=== PATIENT | male | born 1975 | race Caucasian/White ===

== ENCOUNTER 2019-10-15 12:29 | Emergency (ER) | payer SELFPAY ==
--- NOTE | 2019-10-15 13:13 | RAD REPORT ---
EXAM DESCRIPTION: RAD - Hand Right 3 View - 10/15/2019 1:06 pm CLINICAL HISTORY: PAIN COMPARISON: No comparisons FINDINGS: Soft tissue swelling is seen along the dorsum of the hand. No acute fracture or dislocatio n.
--- NOTE | 2019-10-15 13:49 | EDPHYS ---
Physician Documentation [facility] Name: Gurpreet Washington Age: 43 yrs Sex: Male : 1975 Arrival Date: 10/15/2019 Time: 12:32 Bed 11 Private MD: ED Physician Ivan Rojo HPI: 10/14 13:16 This 43 yrs old Male presents to ER via Ambulatory with complaints of Hand ma2 Injury. 13:16 The patient or guardian reports a contusion. The complaints affect the left hand ma2 diffusely. Onset: The symptoms/episode began/occurred suddenly, 1 day(s) ago. Associated signs and symptoms: Pertinent negatives: decreased sensation distally, fever, numbness distally, tingling distally. Severity of symptoms: At their worst the symptoms were moderate, in the emergency department the symptoms are unchanged. The patient has experienced similar episodes in the past. Historical: - Allergies: 12:41 No Known Allergies; jl7 - Home Meds: 12:41 None [Active]; jl7 - PMHx: 12:41 None; jl7 - PSHx: 12:41 Appendectomy; jl7 - Immunization history:: Adult Immunizations not up to date. - Social history:: Smoking status: Patient reports the use of cigarette tobacco products, smokes one-half pack cigarettes per day, Patient/guardian denies using alcohol, street drugs, The patient lives with family. - Family history:: not pertinent. ROS: 13:16 Constitutional: Negative for fever, chills, and weight loss. ma2 13:16 All other systems are negative. Exam: 13:16 Constitutional: This is a well developed, well nourished patient who is awake, alert, ma2 and in no acute distress. Neck: Trachea midline, no thyromegaly or masses palpated, and no cervical lymphadenopathy. Supple, full range of motion without nuchal rigidity, or vertebral point tenderness. No Meningismus. Chest/axilla: Normal chest wall appearance and motion. Nontender with no deformity. No lesions are appreciated. Cardiovascular: Regular rate and rhythm with a normal S1 and S2. No gallops, murmurs, or rubs. Normal PMI, no JVD. No pulse deficits. Respiratory: Lungs have equal breath sounds bilaterally, clear to auscultation and percussion. No rales, rhonchi or wheezes noted. No increased work of breathing, no retractions or nasal flaring. Abdomen/GI: Soft, non-tender, with normal bowel sounds. No distension or tympany. No guarding or rebound. No evidence of tenderness throughout. MS/ Extremity: right hand ttp and swelling on medial aspect of dorsal hand, sensation intact, no warmth or redness or other sign of infection, skin over is intact including skin creeses, no skin cuts, Pulses equal, no cyanosis. Neurovascular intact. Full, normal range of motion. Neuro: Awake and alert, GCS 15, oriented to person, place, time, and situation. Cranial nerves II-XII grossly intact. Motor strength 5/5 in all extremities. Sensory grossly intact. Cerebellar exam normal. Normal gait. Vital Signs: 12:39 BP 130 / 91; Pulse 98; Resp 16; Temp 98.9; Pulse Ox 98% ; Weight 72.57 kg; Height 5 ft. jl7 7 in. (170.18 cm); Pain 2/10; 12:39 Body Mass Index 25.06 (72.57 kg, 170.18 cm) 7 MDM: 12:43 Patient medically screened. ma2 13:16 Differential diagnosis: dislocation, closed fracture, contusion, abrasion, tendonitis. ma2 Data reviewed: vital signs, nurses notes. 13:34 Counseling: I had a detailed discussion with the patient and/or guardian regarding: the ma2 historical points, exam findings, and any diagnostic results supporting the discharge/admit diagnosis, the presence of at least one elevated blood pressure reading (>120/80) during this emergency department visit, the need for outpatient follow up. 10/14 12:50 Order name: Hand Right 3 View XRAY; Complete Time: 13:34 ma2 Administered Medications: No medications were administered Disposition: 10/15/19 13:47 Discharged to Home. Impression: Abrasion of right hand. - Condition is Stable. - Discharge Instructions: Hand Contusion, [id number], Form - Return To Work. - Work release form, Medication Reconciliation Form, Thank You Letter, Antibiotic Education, Prescription Opioid Use form. - Follow up: Private Physician; When: Tomorrow; Reason: Continuance of care. Signatures: Dispatcher [employer] Meenakshi Downs RN RN jl7 Ivan Rojo MD MD ma2 Corrections: (The following items were deleted from the chart) 14:09 13:47 10/15/2019 13:47 Discharged to Home. Impression: Abrasion of right hand. jl7 Condition is Stable. Forms are Medication Reconciliation Form, Thank You Letter, Antibiotic Education, Prescription Opioid Use. Follow up: Private Physician; When: Tomorrow; Reason: Continuance of care. ma2
--- NOTE | 2019-10-15 13:49 | ER ---
Nurse's Notes [facility] Name: Gurpreet Washington Age: 43 yrs Sex: Male : 1975 Arrival Date: 10/15/2019 Time: 12:32 Bed 11 Private MD: Diagnosis: Abrasion of right hand Presentation: 10/14 12:39 Chief complaint: Patient states: Hit a wall last night, swelling noted to right hand. jl7 Coronavirus screen: Patient denies fever greater than 100.4F, cough, shortness of breath, or difficulty breathing. Proceed with normal triage process. Ebola Screen: No symptoms or risks identified at this time. Initial Sepsis Screen: Does the patient meet any 2 criteria? No. Patient's initial sepsis screen is negative. Does the patient have a suspected source of infection? No. Patient's initial sepsis screen is negative. Risk Assessment: Do you want to hurt yourself or someone else? Patient reports no desire to harm self or others. Onset of symptoms was October 14, 2019. 12:39 Method Of Arrival: Ambulatory jl7 12:39 Acuity: DANG 4 jl7 Triage Assessment: 12:41 General: Appears in no apparent distress. uncomfortable, Behavior is calm, cooperative, jl7 appropriate for age. Pain: Complains of pain in dorsum of right hand Pain currently is 2 out of 10 on a pain scale. Musculoskeletal: Swelling present in dorsum of right hand. Injury Description: swelling. Historical: - Allergies: 12:41 No Known Allergies; jl7 - Home Meds: 12:41 None [Active]; jl7 - PMHx: 12:41 None; jl7 - PSHx: 12:41 Appendectomy; jl7 - Immunization history:: Adult Immunizations not up to date. - Social history:: Smoking status: Patient reports the use of cigarette tobacco products, smokes one-half pack cigarettes per day, Patient/guardian denies using alcohol, street drugs, The patient lives with family. - Family history:: not pertinent. Screenin:50 Abuse screen: Denies threats or abuse. Denies injuries from another. Nutritional jl7 screening: No deficits noted. Tuberculosis screening: No symptoms or risk factors identified. Fall Risk None identified. Assessment: 12:50 General: See triage assessment. jl7 Vital Signs: 12:39 BP 130 / 91; Pulse 98; Resp 16; Temp 98.9; Pulse Ox 98% ; Weight 72.57 kg; Height 5 ft. jl7 7 in. (170.18 cm); Pain 2/10; 12:39 Body Mass Index 25.06 (72.57 kg, 170.18 cm) jl7 ED Course: 12:32 Patient arrived in ED. ag5 12:40 Triage completed. jl7 12:41 Arm band placed on right wrist. jl7 12:43 Ivan Rojo MD is Attending Physician. ma2 12:50 Patient has correct armband on for positive identification. Bed in low position. Call jl7 light in reach. Side rails up X 1. 13:09 Hand Right 3 View XRAY In Process Unspecified. EDNH 14:06 Meenakshi Russell RN is Primary Nurse. jl7 14:09 No provider procedures requiring assistance completed. Patient did not have IV access [facility] during this emergency room visit. Administered Medications: No medications were administered Outcome: 13:47 Discharge ordered by . [facility] 14:09 Discharged to home ambulatory. jl7 14:09 Condition: stable 14:09 Discharge instructions given to patient, Instructed on discharge instructions, follow up and referral plans. Demonstrated understanding of instructions, follow-up care. 14:10 Patient left the ED. 7 Signatures: Dispatcher [employer] Meenakshi Downs RN RN jl7 Alzahri, Mohammad, MD MD ct2 Josemanuel Eagle ag5
[2019-10-15 14:20] VITALS: BP 130/91; TEMP 98.9; O2SAT 98
== END 2019-10-15 14:10 | disposition home or self-care (01) ==
LOC: ER 12:29
DX: S60.511A Abrasion of right hand, initial encounter (principal); W22.8XXA Striking against or struck by other objects, initial encounter; Y93.9 Activity, unspecified; Y92.9 Unspecified place or not applicable; F17.210 Nicotine dependence, cigarettes, uncomplicated
CPT/HCPCS: 99283

== ENCOUNTER 2020-10-27 14:45 | Emergency (ER) | payer SELFPAY ==
--- NOTE | 2020-10-27 16:32 | RAD REPORT ---
EXAM DESCRIPTION: RAD - Chest Pa And Lat (2 Views) - 10/27/2020 4:24 pm CLINICAL HISTORY: RIB PAIN - LEFT COMPARISON: None TECHNIQUE: Frontal and lateral views of the chest were obtained. FINDINGS: The lungs are clear. Small granuloma lateral mid left lung field. Heart size is normal an d central vasculature is within normal limits. No pleural effusion or pneumothorax seen. No gross r ib deformity. No aortic abnormality. IMPRESSION: No acute cardiopulmonary process.
--- NOTE | 2020-10-27 16:55 | ER ---
Nurse's Notes [facility] Name: Gurpreet Washington Age: 45 yrs Sex: Male : 1975 Arrival Date: 10/27/2020 Time: 14:50 Bed 23 Private MD: Diagnosis: Rib Contusion Presentation: 10/27 15:25 Chief complaint: Patient states: Fell off the [employer] board last night, landed on L ca1 side, c/o of L back pain, "I feel like I broke my ribs". Coronavirus screen: Client denies travel out of the [place] in the last 14 days. At this time, the client does not indicate any symptoms associated with coronavirus-19. Ebola Screen: Patient negative for fever greater than or equal to 101.5 degrees Fahrenheit, and additional compatible Ebola Virus Disease symptoms Patient denies exposure to infectious person. Patient denies travel to an Ebola-affected area in the 21 days before illness onset. No symptoms or risks identified at this time. Initial Sepsis Screen: Does the patient meet any 2 criteria? No. Patient's initial sepsis screen is negative. Does the patient have a suspected source of infection? No. Patient's initial sepsis screen is negative. Risk Assessment: Do you want to hurt yourself or someone else? Patient reports no desire to harm self or others. Onset of symptoms was October 27, 2020. 15:25 Method Of Arrival: Ambulatory ca1 15:25 Acuity: DANG 4 ca1 Triage Assessment: 17:05 General: Appears in no apparent distress. Behavior is calm, cooperative. iw Historical: - Allergies: 15:27 No Known Allergies; ca1 - Home Meds: 15:27 None [Active]; ca1 - PMHx: 15:27 None; ca1 - PSHx: 15:27 Appendectomy; back surgery; ca1 - Immunization history:: Flu vaccine is not up to date. - Social history:: Smoking status: Patient reports the use of cigarette tobacco products, smokes one-half pack cigarettes per day. Screenin:00 Abuse screen: Denies threats or abuse. Denies injuries from another. Nutritional iw screening: No deficits noted. Tuberculosis screening: No symptoms or risk factors identified. Fall Risk None identified. Assessment: 16:30 General: Appears in no apparent distress. Behavior is calm, cooperative. Pain: iw Complains of pain in left lateral posterior chest and left lateral anterior chest. Neuro: Level of Consciousness is awake, alert, obeys commands, Oriented to person, place, time, situation, Moves all extremities. Full function. Cardiovascular: Patient's skin is warm and dry. Respiratory: Respiratory effort is even, unlabored, Respiratory pattern is regular, symmetrical. Derm: Skin is intact, is healthy with good turgor. Musculoskeletal: Range of motion: intact in all extremities. Vital Signs: 15:25 BP 130 / 85; Pulse 88; Resp 16 S; Temp 97.3; Pulse Ox 99% on R/A; Weight 72.57 kg (R); ca1 Height 5 ft. 7 in. (170.18 cm) (R); Pain 8/10; 15:25 Body Mass Index 25.06 (72.57 kg, 170.18 cm) ca1 ED Course: 14:50 Patient arrived in ED. am2 15:26 Triage completed. ca1 15:27 Arm band placed on right wrist. ca1 15:54 Maria G Richmond, RN is Primary Nurse. iw 15:56 Jose C Kang PA is PHCP. m 15:56 Siddhartha Courtney MD is Attending Physician. jmm 16:22 Chest Pa And Lat (2 Views) XRAY In Process Unspecified. EDMS 16:30 Patient has correct armband on for positive identification. iw 17:05 No provider procedures requiring assistance completed. Patient did not have IV access iw during this emergency room visit. Administered Medications: No medications were administered Outcome: 16:54 Discharge ordered by MD. jmm 17:05 Discharged to home ambulatory. iw 17:05 Condition: good 17:05 Discharge instructions given to patient, Instructed on discharge instructions, follow up and referral plans. medication usage, Demonstrated understanding of instructions, follow-up care, medications, Prescriptions given X 1. 17:06 Patient left the ED. [facility] Signatures: Dispatcher [employer] EDMS Jose C Kang PA PA jmm Williams, Irene, RN RN iw Moreno, Amanda am2 Radha Woods RN RN ca1
--- NOTE | 2020-10-27 16:56 | EDPHYS ---
Physician Documentation [facility] Name: Gurpreet Washington Age: 45 yrs Sex: Male : 1975 Arrival Date: 10/27/2020 Time: 14:50 Bed 23 Private MD: ED Physician Siddhartha Courtney HPI: 10/27 16:50 This 45 yrs old Male presents to ER via Ambulatory with complaints of rib jmm pain. 16:50 The patient or guardian reports chest pain that is located primarily in the left jmm lateral anterior chest and left lateral posterior chest. Onset: The symptoms/episode began/occurred acutely. 16:51 The pain does not radiate. Associated signs and symptoms: Pertinent negatives: jmm shortness of breath. The chest pain is described as aching. Duration: The patient or guardian reports a single episode, that is still ongoing. Modifying factors: The symptoms are alleviated by nothing. the symptoms are aggravated by nothing. This is a 45 year old male with no chronic medical conditions that presents to the ED with complaints of left sided rib pain which occurred last night after falling off a hoverboard. Denies head injury or other injury. . Historical: - Allergies: 15:27 No Known Allergies; ca1 - Home Meds: 15:27 None [Active]; ca1 - PMHx: 15:27 None; ca1 - PSHx: 15:27 Appendectomy; back surgery; ca1 - Immunization history:: Flu vaccine is not up to date. - Social history:: Smoking status: Patient reports the use of cigarette tobacco products, smokes one-half pack cigarettes per day. ROS: 16:51 Constitutional: Negative for fever, chills, and weight loss. jmm 16:51 Cardiovascular: Positive for chest pain, with movement. 16:51 All other systems are negative. Exam: 16:51 Constitutional: This is a well developed, well nourished patient who is awake, alert, jmm and in no acute distress. Head/Face: atraumatic. Eyes: EOMI, no conjunctival erythema appreciated ENT: Moist Mucus Membranes Neck: Trachea midline, Supple 16:51 Cardiovascular: Regular rate and rhythm. No edema appreciated Respiratory: Normal respirations, no respiratory distress appreciated Abdomen/GI: Non distended, soft Back: Normal ROM Skin: General appearance color normal MS/ Extremity: Moves all extremities, no obvious deformities appreciated, no edema noted to the lower extremities Neuro: Awake and alert, normal gait Psych: Behavior is normal, Mood is normal, Patient is cooperative and pleasant 16:51 Chest/axilla: Palpation: tenderness, that is moderate, of the left lateral anterior chest and left lateral posterior chest. Vital Signs: 15:25 BP 130 / 85; Pulse 88; Resp 16 S; Temp 97.3; Pulse Ox 99% on R/A; Weight 72.57 kg (R); ca1 Height 5 ft. 7 in. (170.18 cm) (R); Pain 8/10; 15:25 Body Mass Index 25.06 (72.57 kg, 170.18 cm) ca1 MDM: 16:13 Patient medically screened. jon 16:53 Data reviewed: vital signs, nurses notes. Counseling: I had a detailed discussion with irene the patient and/or guardian regarding: the historical points, exam findings, and any diagnostic results supporting the discharge/admit diagnosis, radiology results, the need for outpatient follow up, to return to the emergency department if symptoms worsen or persist or if there are any questions or concerns that arise at home. ED course: Patient given IS along with rib injury return precautions. patient understood and agrees with the plan of care. . 10/27 15:27 Order name: Chest Pa And Lat (2 Views) XRAY; Complete Time: 16:39 ca1 10/27 16:47 Order name: INCENTIVE SPIROMETRY irene Administered Medications: No medications were administered Disposition: 10/27/20 16:54 Discharged to Home. Impression: Rib Contusion. - Condition is Stable. - Discharge Instructions: Rib Contusion, Incentive Spirometer. - Prescriptions for orphenadrine citrate 100 mg Oral Tablet Sustained Release - take 1 tablet by ORAL route 2 times per day As needed; 20 tablet. - Medication Reconciliation Form, Thank You Letter, Antibiotic Education, Prescription Opioid Use, Work release form form. - Follow up: Private Physician; When: 2 - 3 days; Reason: Recheck today's complaints, Continuance of care, Re-evaluation by your physician. Addendum: 10/29/2020 06:51 Co-signature as Attending Physician, Siddhartha Courtney MD I agree with the assessment and c espino plan of care. Signatures: Dispatcher [employer] EDSiddhartha Antonio MD MD cha Mickail, Joel, PA PA jmm Acob, Radha, RN RN ca1 Corrections: (The following items were deleted from the chart) 10/27 17:06 16:54 10/27/2020 16:54 Discharged to Home. Impression: Rib Contusion. Condition is irene Stable. Forms are Medication Reconciliation Form, Thank You Letter, Antibiotic Education, Prescription Opioid Use. Follow up: Private Physician; When: 2 - 3 days; Reason: Recheck today's complaints, Continuance of care, Re-evaluation by your physician. irene
[2020-10-27 17:12] VITALS: BP 130/85; TEMP 97.3; O2SAT 99
== END 2020-10-27 17:06 | disposition home or self-care (01) ==
LOC: ER 14:45
DX: S20.212A Contusion of left front wall of thorax, initial encounter (principal); V00.848A Other accident with standing micro-mobility pedestrian conveyance, initial encounter; Y93.9 Activity, unspecified; Y92.9 Unspecified place or not applicable; F17.210 Nicotine dependence, cigarettes, uncomplicated
CPT/HCPCS: 71046; 99283